=== PATIENT | male | born 1970 | race African-American/Black ===

== ENCOUNTER 2024-03-20 13:42 | Emergency (ER) | payer OTHER ==
[2024-03-20 14:45] LABS: Bilirubin Neg (Negative); Blood, Urine Negative (Negative); Clarity Clear (Clear); Glucose, Urine (Dipstick) Normal (Negative); Ketone, Urine Negative (Negative); Leukocyte 25 (Negative); Nitrite Negative (Negative); Protein, Urine (Dipstick) Negative (Neg-Trace); Specific Gravity, Urine 1.015 (1.005-1.030); Urobilinogen Normal mg/dL (Less than 2)
[2024-03-20 15:25] LABS: RBC/HPF 0-3 HPF (0-3)
[2024-03-20 15:26] LABS: Bacteria/HPF 1+ HPF (None Seen); CAUTI Indications for Culture Pelvic or flank pain; Squamous Epithelial 0-3 HPF (0-3); WBC/HPF 0-3 HPF (0-3)
[2024-03-20 15:27] LABS: Mucous/LPF 1+ LPF (<2+)
[2024-03-20 15:30] LABS: Urine Culture Reflex No No
[2024-03-20] MEDS ORDERED: Sterile Water 10 ML ONE (15:36)
[2024-03-20] MEDS ORDERED: cefTRIAXone (ROCEPHIN) 500 MG VIAL ONE (15:36)
[2024-03-21 05:26] LABS: Chlam.trachomatis by PCR,Urine Not Detected (NotDetected); GC N.gonorrhoeae PCR,UrineVOID Not Detected (NotDetected)
== END 2024-03-20 16:09 | disposition home or self-care (01) ==
LOC: CSHERS 13:42
DX: N45.1 Epididymitis (principal); E11.9 Type 2 diabetes mellitus without complications; I10 Essential (primary) hypertension; F17.210 Nicotine dependence, cigarettes, uncomplicated; Z55.6 Problems related to health literacy
CPT/HCPCS: 76870; 81001; 87086; 87491; 87591; 93976; J0696; 96372

== ENCOUNTER 2024-03-25 00:27 | Emergency (ER) | payer OTHER ==
[2024-03-25] MEDS ORDERED: HYDROcodone/Acetaminophen 10/325 mg Tablet ONE (01:06)
== END 2024-03-25 01:40 | disposition home or self-care (01) ==
LOC: CSHERS 00:27
DX: S20.212A Contusion of left front wall of thorax, initial encounter (principal); S80.02XA Contusion of left knee, initial encounter; S70.12XA Contusion of left thigh, initial encounter; I10 Essential (primary) hypertension; E11.9 Type 2 diabetes mellitus without complications; F17.210 Nicotine dependence, cigarettes, uncomplicated; V44.5XXA Car driver injured in collision with heavy transport vehicle or bus in traffic accident, initial encounter
CPT/HCPCS: 71045

== ENCOUNTER 2024-10-23 14:05 | Outpatient (CLI) | payer OTHER | END 2024-10-23 14:06 | disposition home or self-care (01) | LOC: CSHCT 14:05 | PROVIDERS: ATTEND Family Medicine | DX: Z12.2 Encounter for screening for malignant neoplasm of respiratory organs (principal); F17.210 Nicotine dependence, cigarettes, uncomplicated | CPT/HCPCS: 71271 ==